=== PATIENT | male | born 1990 | race American Indian/Alaskan Native ===

== ENCOUNTER 2019-08-25 04:53 | Emergency (ER) | payer SELFPAY ==
[2019-08-25] MEDS ORDERED: IBUPROFEN 800 MG TAB PO ONE (05:38)
[2019-08-25 06:13] VITALS: BP 116/72
[2019-08-25] MEDS ORDERED: diphenhydrAMINE 50 MG/ML VIAL IV ONE (06:24)
[2019-08-25] MEDS ORDERED: dexAMETHasone 4 MG/ML VIAL IV ONE (06:24)
--- NOTE | 2019-08-25 06:41 | Emergency Department Report ---
ED General Adult HPI - General Chief complaint: Allergic Reaction Stated complaint: MOUTH SWOLLEN Time Seen by Provider: 08/25/19 06:09 Source: patient Mode of arrival: Ambulatory Limitations: No Limitations - History of Present Illness Initial comments: This is a 29-year-old male resents for evaluation of swelling of the lips. He does not have any tongue swelling whatsoever. Triage note is incorrect. The lip swelling began yesterday and is nonprogressive. The patient has an erosion/lesion on the left side of his lower lip. He thinks that this is due to "dry lips. He is a poor historian. He is able to speak but shows limited effort. He does not report difficulty in breathing. 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 He has some chronic rash of his right elbow. He reports something on the buccal mucosa of his lower lip which is painful. He states he has some discomfort under the left mandibular area. He reports no injury. The patient does not take any current medications. He has no history of allergy or hypertension. -: Gradual, hour(s) Location: mouth Radiation: non-radiation Severity scale (0 -10): 5 Quality: other (soreness) Consistency: intermittent Improves with: none Worsens with: none Associated Symptoms: denies other symptoms - Related Data Previous Rx's Medication Instructions Recorded Last Taken Type Valacyclovir HCl [Valtrex] 1,000 mg PO BID #14 tablet 08/25/19 Unknown Rx Allergies Allergy/AdvReac Type Severity Reaction Status Date / Time No Known Allergies Allergy Unverified 08/25/19 05:24 ED Review of Systems ROS: Stated complaint: MOUTH SWOLLEN Other details as noted in HPI Constitutional: denies: chills, fever Eyes: denies: eye pain, eye discharge, vision change ENT: as per HPI. denies: ear pain, throat pain Respiratory: denies: cough, shortness of breath, wheezing Cardiovascular: denies: chest pain, palpitations Endocrine: no symptoms reported Gastrointestinal: denies: abdominal pain, nausea, diarrhea Genitourinary: denies: urgency, dysuria Musculoskeletal: denies: back pain, joint swelling, arthralgia Skin: denies: rash, lesions Neurological: denies: headache, weakness, paresthesias Psychiatric: denies: anxiety, depression Hematological/Lymphatic: denies: easy bleeding, easy bruising ED Past Medical Hx - Past Medical History Previous Medical History?: No - Surgical History Past Surgical History?: No - Social History Smoking Status: Current Every Day Smoker Substance Use Type: None - Medications Home Medications: Home Medications Medication Instructions Recorded Confirmed Last Taken Type Valacyclovir HCl [Valtrex] 1,000 mg PO BID #14 tablet 08/25/19 Unknown Rx ED Physical Exam - General Limitations: No Limitations General appearance: alert, in no apparent distress - Head Head exam: Present: atraumatic, normocephalic - Eye Eye exam: Present: normal appearance - ENT ENT exam: Present: mucous membranes moist, other (there is swelling of the lower lip that is about 1+. There appears to be a vesicular lesion with some dried blood near the oral commissure on the left. There appears to be a mucosal area of erosion possibly an abscess ulcer lower right. The tongue is not swollen. The posterior pharynx appears normal.) - Neck Neck exam: Present: normal inspection, full ROM. Absent: tenderness, meningismus, lymphadenopathy, thyromegaly - Respiratory Respiratory exam: Present: normal lung sounds bilaterally. Absent: respiratory distress - Cardiovascular Cardiovascular Exam: Present: regular rate, normal rhythm. Absent: systolic murmur, diastolic murmur, rubs, gallop - GI/Abdominal GI/Abdominal exam: Present: soft, normal bowel sounds. Absent: distended, tenderness, guarding, rebound, rigid - Rectal Rectal exam: Present: deferred - Extremities Exam Extremities exam: Present: full ROM. Absent: tenderness - Back Exam Back exam: Present: normal inspection - Neurological Exam Neurological exam: Present: alert, oriented X3, CN II-XII intact. Absent: motor sensory deficit - Psychiatric Psychiatric exam: Present: normal affect, normal mood - Skin Skin exam: Present: warm, dry, intact, normal color, other (there are a few tiny no papules/nodules of the left elbow ). Absent: rash ED Course Vital Signs 08/25/19 08/25/19 05:04 06:10 Temperature 98.8 F Pulse Rate 60 56 L Respiratory 18 14 Rate Blood Pressure 128/79 Blood Pressure 116/72 [Left] O2 Sat by Pulse 99 100 Oximetry - Reevaluation(s) Reevaluation #1: Stable lipid edema. Patient will be given Benadryl and Decadron. This will be followed by a prescription for Valtrex. He is appropriate for outpatient follow-up. The tool marker would be of benefit. 08/25/19 06:41 Critical care attestation.: If time is entered above; I have spent that time in minutes in the direct care of this critically ill patient, excluding procedure time. ED Disposition Clinical Impression: Lip edema, Aphthous ulcer of mouth, Stomatitis Disposition: - TO HOME OR SELFCARE Is pt being admited?: No Does the pt Need Aspirin: No Condition: Stable Instructions: Viral Syndrome (ED), Canker Sores (ED), Oral Mucositis (ED) Additional Instructions: I would recommend follow-up with a tool marker and a primary care clinic. Rx as directed. Return as needed any acute change or worsening symptoms. Prescriptions: Valacyclovir HCl [Valtrex] 1,000 mg PO BID #14 tablet Referrals: [facility] [Provider Group] - 3-5 Days Time of Disposition: 06:44
== END 2019-08-25 07:46 | disposition home or self-care (01) ==
LOC: ED 04:53
DX: R60.0 Localized edema (principal); K12.0 Recurrent oral aphthae; F17.200 Nicotine dependence, unspecified, uncomplicated
CPT/HCPCS: 96374; 99282; J1100; J1200

== ENCOUNTER 2019-08-28 13:44 | Emergency (ER) | payer SELFPAY ==
[2019-08-28 14:10] VITALS: BP 130/62
[2019-08-28] MEDS ORDERED: IBUPROFEN 600 MG TAB PO ONE (15:25)
--- NOTE | 2019-08-28 15:26 | Emergency Department Report ---
Blank Doc - Documentation Documentation: 29-year-old male that presents with fever and body aches with URI symptoms. This initial assessment/diagnostic orders/clinical plan/treatment(s) is/are subject to change based on patient's health status, clinical progression and re- assessment by fellow clinical providers in the ED. Further treatment and workup at subsequent clinical providers discretion. Patient/guardians urged not to elope from the ED as their condition may be serious if not clinically assessed and managed. Initial orders include: 1- Patient sent to [facility] for further evaluation and treatment 2- motrin 3- CXR
[2019-08-28] MEDS ORDERED: ACETAMINOPHEN 500 MG TAB PO ONE (15:58)
--- NOTE | 2019-08-28 15:58 | Emergency Department Report ---
Minor Respiratory - HPI Chief Complaint: Fever Stated Complaint: FLU SX Time Seen by Provider: 08/28/19 15:24 Duration: 2 Days Pain Location: Throat, Chest Severity: moderate Minor Respiratory: Yes Sore Throat, Yes Able to Tolerate Fluids, Yes Cough, Yes Fever, No Rhinorrhea, No Ear Pain, No Sick Contacts, No Hemoptysis, No Chest Pain, No Shortness of Breath Other History: 29 YO AA MALE COMES TO ER WITH ACUTE ONSET FEVER AND MYALGIA YESTERDAY. NO HX. NO RX AT HOME. ILL APPEARING. FEBRILE ED Review of Systems ROS: Stated complaint: FLU SX Other details as noted in HPI Comment: All other systems reviewed and negative ED Past Medical Hx - Past Medical History Previous Medical History?: No - Surgical History Past Surgical History?: No - Family History Family history: no significant - Social History Smoking Status: Never Smoker Substance Use Type: Alcohol - Medications Home Medications: Home Medications Medication Instructions Recorded Confirmed Last Taken Type Valacyclovir HCl [Valtrex] 1,000 mg PO BID #14 tablet 08/25/19 Unknown Rx Ibuprofen [Motrin] 800 mg PO Q8HR PRN #30 tablet 08/28/19 Unknown Rx Oseltamivir [Tamiflu] 75 mg PO BID #10 cap 08/28/19 Unknown Rx Minor Respiratory Exam - Exam General: Vital signs noted. No distress. Alert and acting appropriately. HEENT: Yes Pharyngeal Erythema, Yes Moist Mucous Membranes, Yes Rhinorrhea, Yes Conjuctival Injection, No Pharyngeal Exudates, No Frontal Tenderness, No Maxillary Tenderness Ear: Neither TM Bulge, Neither TM Erythema, Neither EAC Pain, Neither EAC Discharge Neck: Yes Adenopathy, Yes Supple Lungs: Yes Good Air Exchange, No Wheezes, No Ronchi, No Stridor, No Cough, No Labored Respirations, No Retractions, No Use of Accessory Muscles, No Other Abnormal Lung Sounds Heart: Yes Regular, No Murmur Abdomen: Yes Normal Bowel Sounds, No Tenderness, No Peritoneal Signs Skin: No Rash, No Edema Neurologic: Alert and oriented, no deficits. Musculoskeletal: Unremarkable. ED Course Vital Signs 08/28/19 14:10 Temperature 102.9 F H Pulse Rate 109 H Respiratory 16 Rate Blood Pressure 130/62 O2 Sat by Pulse 96 Oximetry ED Medical Decision Making - Radiology Data Radiology results: report reviewed, image reviewed - Medical Decision Making XRAY NEG FOR PNA MEDICATED IN ER DC HOME WITH RX FOR TAMIFLU Vital Signs 08/28/19 14:10 Temperature 102.9 F H Pulse Rate 109 H Respiratory 16 Rate Blood Pressure 130/62 O2 Sat by Pulse 96 Oximetry ON DC TAKING PO/AMBULATORY - Differential Diagnosis FLU/ PNA Critical care attestation.: If time is entered above; I have spent that time in minutes in the direct care of this critically ill patient, excluding procedure time. ED Disposition Clinical Impression: Influenza, Fever Disposition: DC-01 TO HOME OR SELFCARE Is pt being admited?: No Does the pt Need Aspirin: No Condition: Stable Instructions: Viral Syndrome (ED) Additional Instructions: MEDS ORDERED STAY WELL HYDRATED REST FOLLOW UP WITH PCP IN 48 HOURS IF YOU DO NOT FEEL BETTER Prescriptions: Ibuprofen [Motrin] 800 mg PO Q8HR PRN #30 tablet PRN Reason: Pain, Moderate (4-6) Oseltamivir [Tamiflu] 75 mg PO BID #10 cap Referrals: JUNIOR MENDES MD [Staff Physician] - 3-5 Days Forms: Work/School Release Form(ED) Time of Disposition: 16:24
[2019-08-28] MEDS ORDERED: traMADol 50 MG TAB PO ONE (16:26)
--- NOTE | 2019-08-28 16:27 | XRay Report ---
CHEST 2 VIEWS INDICATION: fever cough. COMPARISON: None FINDINGS: Support devices: None. Heart: Within normal limits. Lungs/pleura: No acute air space or interstitial disease. No pneumothorax. Additional findings: None. IMPRESSION: Normal chest x-ray Signer Name: Thomas Schaefer Jr, MD Signed: 08/28/2019 4:23 PM Workstation Name: [id number]
== END 2019-08-28 17:14 | disposition home or self-care (01) ==
LOC: ED 13:44
DX: J11.1 Influenza due to unidentified influenza virus with other respiratory manifestations (principal)
CPT/HCPCS: 71046; 99283